=== PATIENT | female | born 1950 | race African-American/Black ===

== ENCOUNTER 2018-09-10 13:57 | Inpatient (IN) ==
[2018-09-10 15:35] LABS: Basophils % 0.2 % (0.0-0.8); Eosinophils % 0.2 % (0.00-10.9); Hematocrit 35.3 VOL% (35.7-47.0); Hemoglobin 11.7 GM/DL (12.0-16.0); Immature Granulocytes % 0.7 %; Immature Granulocytes Absolute 0.12 #; Lymphocytes # 1.9 10*3/uL (1.4-4.0); Lymphocytes % 11.8 % (21.3-54.2); Mean Corpuscular HGB Conc 33.1 GM/DL (32-36); Mean Corpuscular Hemoglobin 32 PG (27-34); Mean Corpuscular Volume 95.1 FL (87-102); Mean Platelet Volume 10.8 FL (9.6-12.0); Monocytes # 1.6 10*3/uL (0.11-0.8); Monocytes % 9.7 % (1.7-12.7); Neutrophils # 12.5 10*3/uL (1.4-7.4); Neutrophils % 77.4 % (38.7-73.9); Platelet Count 350 T/CUMM (130-400); Red Blood Count 3.71 MC/CUMM (3.8-5.5); Red Cell Distribution Width 13.2 % (9.3-17.3); White Blood Count 16.1 T/CUMM (4-12)
[2018-09-10 15:42] LABS: PT Patient Result 11.1 SECS; Partial Thromboplastin Time 26.6 SECS (0-40)
[2018-09-10 16:17] LABS: Albumin 3.1 G/DL (3.4-5.0); CKMB % 0.2 %; Osmolality,Calculated 296.8 MOS/KG (273-304); Potassium 3.2 MMOL/L (3.5-5.1); Total Protein 6.9 G/DL (6.4-8.3)
[2018-09-10 16:18] LABS: Troponin I 0.159 NG/ML (0.00-0.045)
[2018-09-10 16:24] LABS: Apearance,Urine CLOUDY (Clear); Bilirubin,Urine Negative (Negative); Blood, Urine Large mg/dL (Negative); Glucose,Urine (UA) Negative (Negative); Ketones,Urine 5 mg/dL (Negative); Mucus,Urine Occasional /LPF (Occasional); Nitrite,Urine Positive (Negative); Protein,Urine 100 MG/DL; RBC,Urine 24 /HPF (0-4); Squamous Epithelial Cell,Urine Occasional /HPF (0-10); Urine Specific Gravity 1.021 (1.001-1.035); Urine Urobilinogen < 2.0 EU/DL (0.2-1.0); WBC,Urine 340 /HPF (0-6)
[2018-09-10 16:27] LABS: Urine Color Dark yellow (Yellow)
[2018-09-10] MEDS ORDERED: LEVOFLOXACIN INJ 750 MG in PREMIX 1 EACH IV STA (16:35)
[2018-09-10 16:36] LABS: Barbiturates Screen,Urine Negative (Negative); Benzodiazepines Screen,Urine Negative (Negative); Cannabinoid Screen,Urine Negative (Negative); Opiate Screen,Urine Negative (Negative); Phencyclidine Screen,Urine Negative (Negative)
[2018-09-10] MEDS ORDERED: SODIUM CHLORIDE 0.9% 500 ML IV STA (16:36)
[2018-09-10] MEDS ORDERED: DEXTROSE 50% 25 GM/50 ML VIAL IV PRN (17:12)
[2018-09-10] MEDS ORDERED: GLUCAGON 1 MG VIAL IM PRN (17:12)
[2018-09-10] MEDS ORDERED: ONDANSETRON 4 MG/2 ML VIAL IV PRN (17:12)
[2018-09-10] MEDS ORDERED: HALOPERIDOL 5 MG/ML AMP IM STA (18:00)
[2018-09-10] MEDS ORDERED: NIFEdipine 10 MG CAPSULE PO PRN (19:33)
[2018-09-10] MEDS: ENOXAPARIN 40 MG/0.4 ML SYRINGE SUBCUT SCH (20:26)
[2018-09-10] MEDS ORDERED: LORazepam 2 MG/1 ML VIAL IM PRN (20:39)
[2018-09-10] MEDS ORDERED: MAGNESIUM HYDROXIDE SUSP 30 ML UDCUP PO PRN (20:39)
[2018-09-10] MEDS ORDERED: OLANZapine 10 MG VIAL IM PRN ×2 (20:39)
[2018-09-10] MEDS ORDERED: ACETAMINOPHEN 325 MG TABLET PO PRN (20:39)
[2018-09-10] MEDS ORDERED: LORazepam 1 MG TABLET PO PRN (20:39)
[2018-09-10] MEDS ORDERED: HALOPERIDOL 5 MG/ML AMP IM PRN (20:39)
[2018-09-10] MEDS: CLOTRIMAZOLE/BETAMETHASONE CREAM 15 GM TUBE TOP SCH (21:45)
[2018-09-10] MEDS: SODIUM CHLORIDE 0.9% 1,000 ML IV SCH (23:14)
[2018-09-10] MEDS: INSULIN LISPRO 100 UNIT/ML SUBCUT SCH (23:14)
[2018-09-11] MEDS: POTASSIUM CHLORIDE 20 MEQ TABLET PO SCH ×4 (01:20→04:46)
[2018-09-11] MEDS: HALOPERIDOL 5 MG TABLET PO SCH ×3 (01:23→22:09)
[2018-09-11] MEDS: clonazePAM 0.5 MG TABLET PO SCH ×5 (01:24→22:14)
[2018-09-11] MEDS: SODIUM CHLORIDE 0.9% 1,000 ML IV SCH ×4 (02:54→21:45)
[2018-09-11 03:52] LABS: Basophils % 0.1 % (0.0-0.8); Eosinophils # 0.2 10*3/uL (0.0-0.87); Eosinophils % 1.3 % (0.00-10.9); Hematocrit 29.2 VOL% (35.7-47.0); Hemoglobin 9.4 GM/DL (12.0-16.0); Immature Granulocytes % 0.7 %; Immature Granulocytes Absolute 0.09 #; Lymphocytes # 1.6 10*3/uL (1.4-4.0); Lymphocytes % 11.9 % (21.3-54.2); Mean Corpuscular HGB Conc 32.2 GM/DL (32-36); Mean Corpuscular Hemoglobin 31 PG (27-34); Mean Corpuscular Volume 96.4 FL (87-102); Mean Platelet Volume 11.3 FL (9.6-12.0); Monocytes # 1.2 10*3/uL (0.11-0.8); Monocytes % 8.7 % (1.7-12.7); Neutrophils # 10.4 10*3/uL (1.4-7.4); Neutrophils % 77.3 % (38.7-73.9); Platelet Count 298 T/CUMM (130-400); Red Blood Count 3.03 MC/CUMM (3.8-5.5); Red Cell Distribution Width 13.4 % (9.3-17.3); White Blood Count 13.5 T/CUMM (4-12)
[2018-09-11 04:15] LABS: Calcium 8.1 MG/DL (8.5-10.1); Osmolality,Calculated 302.4 MOS/KG (273-304); Potassium 3.2 MMOL/L (3.5-5.1)
[2018-09-11 04:18] LABS: Troponin I 0.115 NG/ML (0.00-0.045)
[2018-09-11] MEDS ORDERED: ARIPiprazole 5 MG TABLET PO SCH (09:00)
[2018-09-11] MEDS ORDERED: POTASSIUM CHLORIDE 20 MEQ TABLET PO PRN (09:01)
[2018-09-11] MEDS ORDERED: MAGNESIUM SULF RIDER 4 GM in PREMIX 1 EACH IV PRN ×2 (09:01→13:13)
[2018-09-11] MEDS ORDERED: MAGNESIUM SULF RIDER 2 GM in PREMIX 1 EACH IV PRN ×2 (09:01→13:13)
[2018-09-11] MEDS ORDERED: MAGNESIUM SULF RIDER 50 ML IV ONE (09:11)
[2018-09-11] MEDS: CHOLECALCIFEROL 1,000 UNIT TABLET PO SCH (09:17)
[2018-09-11] MEDS: ARIPiprazole 10 MG TABLET PO SCH ×3 (09:17→22:13)
[2018-09-11] MEDS: PANTOPRAZOLE 40 MG TABLET PO SCH (09:17)
[2018-09-11] MEDS: INSULIN LISPRO 100 UNIT/ML SUBCUT SCH ×4 (09:18→22:00)
[2018-09-11] MEDS: VENLAFAXINE XR 75 MG CAPSULE PO SCH ×2 (09:18→17:15)
[2018-09-11] MEDS: amLODIPine 5 MG TABLET PO SCH (09:18)
[2018-09-11] MEDS: ASPIRIN EC 81 MG TABLET PO SCH (09:18)
[2018-09-11] MEDS: MULTIVITAMIN (CENTRUM) TABLET PO SCH (09:18)
[2018-09-11] MEDS: CLOTRIMAZOLE/BETAMETHASONE CREAM 15 GM TUBE TOP SCH ×2 (09:19→22:10)
[2018-09-11] MEDS ORDERED: POTASSIUM CHLORIDE 20 MEQ TABLET PO SCH (09:30)
[2018-09-11] MEDS: POTASSIUM CHLORIDE 20 MEQ TABLET PO PRN ×2 (15:55→17:40)
[2018-09-11] MEDS: ENOXAPARIN 40 MG/0.4 ML SYRINGE SUBCUT SCH (17:40)
[2018-09-12] MEDS: SODIUM CHLORIDE 0.9% 1,000 ML IV SCH ×3 (05:33→17:03)
[2018-09-12] MEDS ORDERED: LEVOFLOXACIN INJ 750 MG in PREMIX 1 EACH IV SCH (09:00)
[2018-09-12] MEDS: INSULIN LISPRO 100 UNIT/ML SUBCUT SCH ×4 (09:51→20:49)
[2018-09-12] MEDS: CHOLECALCIFEROL 1,000 UNIT TABLET PO SCH (09:53)
[2018-09-12] MEDS: ASPIRIN EC 81 MG TABLET PO SCH (09:54)
[2018-09-12] MEDS: amLODIPine 5 MG TABLET PO SCH (09:54)
[2018-09-12] MEDS: clonazePAM 0.5 MG TABLET PO SCH ×4 (09:54→20:49)
[2018-09-12] MEDS: POTASSIUM CHLORIDE 20 MEQ TABLET PO SCH (09:54)
[2018-09-12] MEDS: MULTIVITAMIN (CENTRUM) TABLET PO SCH (09:54)
[2018-09-12] MEDS: HALOPERIDOL 5 MG TABLET PO SCH ×2 (09:54→20:49)
[2018-09-12] MEDS: PANTOPRAZOLE 40 MG TABLET PO SCH (09:54)
[2018-09-12] MEDS: VENLAFAXINE XR 75 MG CAPSULE PO SCH ×2 (09:55)
[2018-09-12] MEDS: CLOTRIMAZOLE/BETAMETHASONE CREAM 15 GM TUBE TOP SCH ×2 (10:02→20:49)
[2018-09-12] MEDS: ENOXAPARIN 40 MG/0.4 ML SYRINGE SUBCUT SCH (16:59)
[2018-09-12] MEDS: ALUMINUM/MAGNES/SIMETH MAX STR 30 ML UDCUP PO PRN (18:57)
[2018-09-13] MEDS: ARIPiprazole 5 MG TABLET PO SCH ×2 (00:35→00:37)
[2018-09-13] MEDS: SODIUM CHLORIDE 0.9% 1,000 ML IV SCH ×4 (03:39→19:47)
[2018-09-13 04:43] LABS: Basophils % 0.1 % (0.0-0.8); Eosinophils # 0.3 10*3/uL (0.0-0.87); Eosinophils % 2.6 % (0.00-10.9); Hematocrit 29.8 VOL% (35.7-47.0); Hemoglobin 9.6 GM/DL (12.0-16.0); Immature Granulocytes % 0.5 %; Immature Granulocytes Absolute 0.05 #; Lymphocytes # 2.1 10*3/uL (1.4-4.0); Lymphocytes % 21.5 % (21.3-54.2); Mean Corpuscular HGB Conc 32.2 GM/DL (32-36); Mean Corpuscular Hemoglobin 31 PG (27-34); Mean Corpuscular Volume 95.5 FL (87-102); Mean Platelet Volume 10.3 FL (9.6-12.0); Monocytes % 10.2 % (1.7-12.7); Neutrophils # 6.3 10*3/uL (1.4-7.4); Neutrophils % 65.1 % (38.7-73.9); Platelet Count 320 T/CUMM (130-400); Red Blood Count 3.12 MC/CUMM (3.8-5.5); Red Cell Distribution Width 13.3 % (9.3-17.3); White Blood Count 9.6 T/CUMM (4-12)
[2018-09-13 05:10] LABS: Calcium 8.3 MG/DL (8.5-10.1); Osmolality,Calculated 287.7 MOS/KG (273-304); Potassium 3.4 MMOL/L (3.5-5.1)
[2018-09-13] MEDS: POTASSIUM CHLORIDE 20 MEQ TABLET PO PRN ×3 (05:31→10:30)
[2018-09-13] MEDS: INSULIN LISPRO 100 UNIT/ML SUBCUT SCH ×4 (07:25→21:11)
[2018-09-13] MEDS: HALOPERIDOL 5 MG TABLET PO SCH ×2 (08:28→20:59)
[2018-09-13] MEDS: clonazePAM 0.5 MG TABLET PO SCH ×4 (08:28→21:12)
[2018-09-13] MEDS: MULTIVITAMIN (CENTRUM) TABLET PO SCH (08:28)
[2018-09-13] MEDS: amLODIPine 5 MG TABLET PO SCH (08:28)
[2018-09-13] MEDS: VENLAFAXINE XR 75 MG CAPSULE PO SCH ×2 (08:28→08:44)
[2018-09-13] MEDS: PANTOPRAZOLE 40 MG TABLET PO SCH (08:28)
[2018-09-13] MEDS: ASPIRIN EC 81 MG TABLET PO SCH (08:29)
[2018-09-13] MEDS: CHOLECALCIFEROL 1,000 UNIT TABLET PO SCH (08:29)
[2018-09-13] MEDS: POTASSIUM CHLORIDE 20 MEQ TABLET PO SCH (08:29)
[2018-09-13] MEDS: CLOTRIMAZOLE/BETAMETHASONE CREAM 15 GM TUBE TOP SCH ×2 (10:14→21:12)
[2018-09-13] MEDS: ENOXAPARIN 40 MG/0.4 ML SYRINGE SUBCUT SCH (16:53)
[2018-09-13] MEDS: SULFAMETHOX/TRIMETHOPRIM 400-80 MG TABLET PO SCH (21:00)
[2018-09-14] MEDS: SODIUM CHLORIDE 0.9% 1,000 ML IV SCH ×2 (02:48→08:40)
[2018-09-14 04:39] LABS: Basophils % 0.3 % (0.0-0.8); Eosinophils # 0.3 10*3/uL (0.0-0.87); Eosinophils % 4.1 % (0.00-10.9); Hematocrit 29.2 VOL% (35.7-47.0); Hemoglobin 9.4 GM/DL (12.0-16.0); Immature Granulocytes % 0.8 %; Immature Granulocytes Absolute 0.06 #; Lymphocytes # 1.6 10*3/uL (1.4-4.0); Lymphocytes % 20.8 % (21.3-54.2); Mean Corpuscular HGB Conc 32.2 GM/DL (32-36); Mean Corpuscular Hemoglobin 31 PG (27-34); Mean Corpuscular Volume 96.4 FL (87-102); Mean Platelet Volume 10.1 FL (9.6-12.0); Monocytes # 0.9 10*3/uL (0.11-0.8); Monocytes % 10.9 % (1.7-12.7); Neutrophils # 4.9 10*3/uL (1.4-7.4); Neutrophils % 63.1 % (38.7-73.9); Platelet Count 322 T/CUMM (130-400); Red Blood Count 3.03 MC/CUMM (3.8-5.5); Red Cell Distribution Width 13.4 % (9.3-17.3); White Blood Count 7.8 T/CUMM (4-12)
[2018-09-14 04:51] LABS: Calcium 8.7 MG/DL (8.5-10.1); Osmolality,Calculated 281.1 MOS/KG (273-304); Potassium 4.1 MMOL/L (3.5-5.1)
[2018-09-14] MEDS: INSULIN LISPRO 100 UNIT/ML SUBCUT SCH ×2 (07:53→13:44)
[2018-09-14] MEDS: MULTIVITAMIN (CENTRUM) TABLET PO SCH (08:35)
[2018-09-14] MEDS: ASPIRIN EC 81 MG TABLET PO SCH (08:35)
[2018-09-14] MEDS: amLODIPine 5 MG TABLET PO SCH (08:36)
[2018-09-14] MEDS: HALOPERIDOL 5 MG TABLET PO SCH (08:36)
[2018-09-14] MEDS: CHOLECALCIFEROL 1,000 UNIT TABLET PO SCH (08:36)
[2018-09-14] MEDS: PANTOPRAZOLE 40 MG TABLET PO SCH (08:36)
[2018-09-14] MEDS: VENLAFAXINE XR 75 MG CAPSULE PO SCH ×2 (08:36→08:39)
[2018-09-14] MEDS: CLOTRIMAZOLE/BETAMETHASONE CREAM 15 GM TUBE TOP SCH (08:36)
[2018-09-14] MEDS: clonazePAM 0.5 MG TABLET PO SCH ×2 (08:36→08:40)
[2018-09-14] MEDS: SULFAMETHOX/TRIMETHOPRIM 400-80 MG TABLET PO SCH (08:36)
[2018-09-14] MEDS ORDERED: TUBERCULIN SKIN TEST 0.1 ML SYRINGE INTRADERM ONE (09:38)
[2018-09-14] MEDS ORDERED: METOPROLOL TARTRATE 25 MG TABLET ONE (10:39)
[2018-09-14] MEDS: ALUMINUM/MAGNES/SIMETH MAX STR 30 ML UDCUP PO PRN (10:44)
[2018-09-14] MEDS ORDERED: METOPROLOL TARTRATE 25 MG TABLET PO SCH (11:00)
[2018-09-14 11:57] VITALS: BP 164/83
== END 2018-09-14 13:54 | DRG 689 ==
LOC: N.ED 13:57 → SUATTDRO 17:07 → N.EDINP 17:07 → N.TELES 20:19
PROVIDERS: ADMIT Internal Medicine; ATTEND Emergency Medicine